=== PATIENT | female | born 2000 | race African-American/Black ===

== ENCOUNTER 2021-04-11 12:55 | Emergency (ER) | payer MEDICAID ==
[~2021-04-11] VITALS: Ht 165.1 cm; Wt 75.0 kg
[2021-04-11 15:39] VITALS: BP 112/78
== END 2021-04-11 15:39 | disposition home or self-care (01) ==
LOC: ER 12:55
DX: O99.892 Other specified diseases and conditions complicating childbirth (principal); R10.0 Acute abdomen; Z3A.19 19 weeks gestation of pregnancy
CPT/HCPCS: 76805; 99284

== ENCOUNTER 2024-09-07 14:35 | Emergency (ER) | payer MEDICAID, OTHER ==
[~2024-09-07] VITALS: Ht 157.5 cm; Wt 73.0 kg
[2024-09-07 14:48] VITALS: O2SAT 99
[2024-09-07] MEDS ORDERED: ACETAMINOPHEN 325MG TABLET PO PRN (15:45)
[2024-09-07 16:23] LABS: CLARITY URINE CLEAR (CLEAR); COLOR URINE DARK YELLOW (YELLOW); GLUCOSE URINE NEGATIVE (NEGATIVE); KETONES URINE TRACE (NEGATIVE); LEUKOCYTE ESTERASE URINE TRACE (NEGATIVE); NITRITE URINE NEGATIVE (NEGATIVE); OCCULT BLOOD URINE 3+ (NEGATIVE); PH URINE 5.5 (4.5-8.0); PROTEIN URINE TRACE (NEGATIVE); SPECIFIC GRAVITY URINE 1.028 (1.005-1.030)
[2024-09-07 16:39] LABS: BASOPHILS % 0.3 % (0.0-2.0); HEMATOCRIT. 37.1 % (36.0-48.0); HEMOGLOBIN. 12.3 g/dL (12.0-16.0); MEAN CORPUSCULAR HEMOGLOBIN 28.7 pg (28.0-32.0); MEAN CORPUSCULAR HGB CONC 33.1 g/dL (31.0-37.0); MEAN CORPUSCULAR VOLUME 86.6 fL (81.0-99.0); MEAN PLATELET VOLUME 10.1 fl (7.4-10.4); NEUTROPHILS % 71.7 % (40.0-76.0); PLATELET 188 x1000/uL (130-400); RED BLOOD CELL COUNT 4.28 mill/uL (4.2-5.4); RED CELL DISTRIBUTION WIDTH 14.8 % (11.6-14.6)
[2024-09-07 16:43] LABS: BACTERIA URINE 1+; SQUAMOUS EPITHELIAL CELL URINE 1+ /lpf (RARE/1+); WBC URINE 0-2 /hpf (0-2)
[2024-09-07 16:45] LABS: CHLORIDE 107 mEq/L (98-107); POTASSIUM 3.6 mEq/L (3.5-5.1); SODIUM 138 mEq/L (136-145)
[2024-09-07 16:46] LABS: CALCIUM 9.2 mg/dL (8.7-10.4); CARBON DIOXIDE 26 mEq/L (21-32)
[2024-09-07 16:51] LABS: CREATININE 0.6 mg/dL (0.6-1.0); GLUCOSE 93 mg/dL (70-105); UREA NITROGEN BLOOD 9 mg/dL (9-23)
[2024-09-07 16:53] LABS: ALANINE AMINOTRANSFERASE 12 IU/L (10-49); ALBUMIN 4.4 g/dL (3.2-4.8); ASPARTATE AMINOTRANSFERASE 16 IU/L (<34); BILIRUBIN DIRECT 0.1 mg/dL (<=3.0); BILIRUBIN TOTAL 0.6 mg/dL (0.1-1.0); PROTEIN TOTAL 7.2 g/dL (6.0-8.3)
[2024-09-07 17:05] LABS: B-HCG QUANTITATIVE 5104 mIU/mL (<3)
[2024-09-07] MEDS ORDERED: CEPH500C2 MT (17:58)
[2024-09-07 23:45] VITALS: BP 101/68; PULSE 75; RESP 16; TEMP 98.4; O2SAT 99
[2024-09-08] MEDS ORDERED: IBUP-2030 MT (00:29)
== END 2024-09-07 17:50 | disposition home or self-care (01) ==
LOC: ER 14:46
DX: O02.1 Missed abortion (principal); Z3A.10 10 weeks gestation of pregnancy
CPT/HCPCS: 36415; 76801; 80048; 80076; 81003; 84702; 85025; 86850; 86900; 99284

== ENCOUNTER 2024-09-07 23:36 | Emergency (ER) | payer MEDICAID ==
[~2024-09-07] VITALS: Ht 157.5 cm; Wt 73.0 kg
[~2024-09-07 23:36] MED LIST: CEPH500C2 MT
[2024-09-08 00:05] VITALS: O2SAT 100
[2024-09-08] MEDS ORDERED: IBUP-2030 MT (00:29)
[2024-09-08] MEDS: IBUPROFEN 800MG TABLET PO ONE (00:30)
[2024-09-08] MEDS: IBUPROFEN 400MG TABLET PO NR (00:51)
[2024-09-08 01:51] VITALS: BP 106/75; PULSE 82; RESP 20; TEMP 36.83628; O2SAT 100
== END 2024-09-08 01:51 | disposition home or self-care (01) ==
LOC: ER 23:36
DX: O03.4 Incomplete spontaneous abortion without complication (principal)
CPT/HCPCS: 99282